=== PATIENT | male | born 1940 | race Caucasian/White ===

== ENCOUNTER 2019-03-06 09:20 | Day surgery (SDC) | payer MEDICARE, SELFPAY ==
[2019-03-06] VITALS (9 sets, daily range): BP systolic 109–164; BP diastolic 44–62; PULSE 50–67; RESP 10–20; TEMP 36.2–36.9; O2SAT 96–99; BMI 26.9
--- NOTE | 2019-03-06 | PATH_ITS ---
[facility] Accession Number: [id number] . 01 Material submitted: . PART A: colon - POLYP AT 45CM PART B: colon - POLYPS AT 20CM . 02 Diagnosis: A. Colon, Polyp at 45 cm, Biopsy: Tubular adenoma. . B. Colon, Polyps at 20 cm, Biopsies: Tubular adenoma in four of seven fragments. MRV 03/07/2019 1334 Local . 02 Electronically signed: . Raquel Stiles MD, Pathologist NPI- [id number] . 01 Gross description: . Part A: POLYP AT 45CM: Received in formalin are 4 fragment(s) of mera, soft tissue measuring 0.1 x 0.1 x 0.1 cm to 0.3 x 0.2 x 0.2 cm submitted entirely in 1 cassette(s) Part B: POLYPS AT 20CM: Received in formalin are multiple fragment(s) of mera, soft tissue measuring 0.1 x 0.1 x 0.1 cm to 0.3 x 0.2 x 0.2 cm submitted entirely in 1 cassette(s) /[facility] [place] 03/06/2019 2232 Local . 02 Pathologist provided ICD-10: D12.6 . 02 CPT . 464957, 166138 Performed at: 01 [facility] [address], [place], [place] [id number] MD Adam Wade MD Phone: [phone] Performed at: 02 [facility] [address] [place], [place] [id number] MD Raquel Stiles MD Phone: [phone]
[2019-03-06] MEDS: SODIUM CHLORIDE 0.9% 1,000 ML 200 ML IV (10:00)
--- NOTE | 2019-03-06 10:48 | PM.HP.1 ---
History of Present Illness History of Present Illness Date Patient Seen: 03/06/19 Time Patient Seen: 10:41 Chief complaint: 23946 Narrative: The patient is a gentleman here for his colonoscopy. His last exam he had numerous polyps removed in he was advised to come back at this time for re-examination because of greater than time polyps Patient History Medical History Depression (Acute) Hypertension (Acute) Family & Social History Social History: household members spouse Tobacco & Substance use: Tobacco type cigars Smoking Status Current some day smoker alcohol intake current alcohol intake frequency holiday/special occasion Substance Use Type does not use Meds Home Medications and Allergies Home Medications Medication Instructions Recorded Confirmed Type amlodipine [Norvasc] 10 mg PO QDAY #0 02/17/16 03/06/19 History fluoxetine 20 mg PO QDAY #0 02/17/16 03/06/19 History hydrochlorothiazide 25 mg PO QDAY #0 02/17/16 03/06/19 History azelastine 2 spray INTRANASAL BID 03/06/19 03/06/19 History cholecalciferol (vitamin D3) 1,000 unit PO DAILY 03/06/19 03/06/19 History [Vitamin D3] fluticasone propionate 2 spray INTRANASAL DAILY 03/06/19 03/06/19 History losartan 50 mg PO DAILY 03/06/19 03/06/19 History teekoprdmmsd-wwehsfqh-umgtpt 1 tab PO DAILY 03/06/19 03/06/19 History [Multivitamin 50 Plus] Allergies Allergy/AdvReac Type Severity Reaction Status Date / Time No Known Drug Allergies Allergy Verified 03/06/19 09:35 Review of Systems Review of Systems ROS Unobtainable: All systems reviewed & are unremarkable except as noted in HPI and below Exam Vital Signs (past 8 hours): - 03/06/19 09:52 Temperature 97.2 F L Pulse Rate 67 Respiratory Rate 20 Blood Pressure 164/59 H Pulse Oximetry 97 Oxygen Delivery Method Room Air Narrative Exam Narrative: Pleasant cooperative patient no apparent distress. Lungs are clear to auscultation. No rales or rhonchi. Heart regular rate and rhythm no murmur gallop. Abdomen is soft nontender protuberant without mass. No obvious hernias. Patient is alert and oriented x3. Assessment & Plan Assessment & Plan narrative: The patient for a screening colonoscopy. I have discussed the procedure with them. Risks of bleeding, perforation which would necessitate major operation, failure to find remove all lesions, the potential tattoo were all discussed. All questions were answered. They wished to proceed.
--- NOTE | 2019-03-06 10:49 | PM.PREOP ---
Pre-operative Note Interval Note History & Physical reviewed/Exam performed by Physician: Yes Changes to H&P: No ASA Class (for procedural sedation): II
--- NOTE | 2019-03-06 11:34 | PM.OP.ENDO ---
Operative Date/Time/Diagnoses Date of procedure: 03/06/19 Time of procedure: 11:34 Pre-op diagnosis: Screening exam. Last exam was 3 years ago. The patient had numerous polyps at that time. Post-op diagnosis: same (For polyps removed. All were under 8 mm. ) Procedure & Clinicians Study performed: Colonoscopy with cold biopsy Same procedure as scheduled: Yes Indications: Screening with a history of polyps Surgeon: Marc Tanner Procedure Notes SCOAP/Timeout: Performed Procedure in detail: The patient was placed in the left lateral decubitus position and underwent IV sedation directed by the surgeon consisting of fentanyl and Versed. Digital exam was reremarkable for decreased sphincter tone under enlarged prostate. The scope was inserted and advanced through the rectum into the sigmoid, descending, transverse, and ascending colon. Patient was noted to have sigmoid diverticulosis. These were few in number. A stiffener was inserted pressure applied to make our way into the cecum. The cecum was reached identified by the ileocecal valve and the appendiceal opening. The scope was gradually brought out. Polyps were found at 45 cm(1 polyp) and in the distal rectum to 20 cm(3 small polyps). The scope ultimately was retroflexed in the rectum. The appearance was normal. The scope was removed and the patient tolerated the procedure well. Soft was very good Scope withdrawal time: 10 minutes(17 total) Sedation minutes: 36 Findings: diverticulosis and polyp Specimen(s): other (Polyps) Complications: none Post-procedure Recommendations: Colonscopy in 5 years (If in good health)
[2019-03-06] MEDS: fentaNYL 250 MCG/5 ML INJ IV (11:39)
[2019-03-06] MEDS: MIDAZOLAM 5 MG/5 ML VIAL IV (11:39)
--- NOTE | 2019-03-06 12:53 | SUR.PHASEII ---
1244 Pt awake, oriented, anxious to go to the cafeteria for lunch. Stable on feet. taking him to the cafeteria in a wheelchair.
== END 2019-03-06 12:50 | disposition home or self-care (01) ==
PROVIDERS: Family Provider Family Medicine; PCP Family Medicine; Visit Provider Specialist
PROC: 0DJD8ZZ Inspection of Lower Intestinal Tract, Via Natural or Artificial Opening Endoscopic (ICD-10-PCS; CPT 45378; principal; 2019-03-06 10:45)
DX: Z12.11 Encounter for screening for malignant neoplasm of colon (principal); Z86.010 Personal history of colon polyps; I10 Essential (primary) hypertension; Z72.0 Tobacco use; F32.9 Major depressive disorder, single episode, unspecified; K57.30 Diverticulosis of large intestine without perforation or abscess without bleeding; D12.6 Benign neoplasm of colon, unspecified
CPT/HCPCS: 45380; 99152; 99153; J2250; J3010